=== PATIENT | female | born 1945 | race Caucasian/White ===

== ENCOUNTER 2017-06-14 05:36 | Day surgery (SDC) | payer MEDICARE ==
[~2017-06-14] VITALS: Ht 160 cm; Wt 95.7 kg
[~2017-06-14 05:36] MED LIST: ASPI-496 PO; CHOL200024 PO; FLUO40CA2 PO; GABA300C10 PO; LEVO125T5 PO; LOSA50TA6 PO; MELO7.5T31 PO; MULT-516 PO; SIMV20TA3 PO
[2017-06-14] MEDS ORDERED: LACTATED RINGERS 1,000 ML IV SCH (06:20)
[2017-06-14 06:22] VITALS: BP 137/97
[2017-06-14] MEDS ORDERED: LIDOCAINE 1%, 2ML SQ PRN (06:30)
[2017-06-14] MEDS ORDERED: BUPIVACAINE/PF 0.5% ONE (06:37)
[2017-06-14] MEDS ORDERED: EPINEPHRINE 1 MG/ML, 1ML ONE (06:37)
[2017-06-14] MEDS ORDERED: PROPOFOL 10 MG/ML, 20ML ONE ×2 (06:54→07:33)
[2017-06-14] MEDS ORDERED: CEFAZOLIN 1,000 MG ONE ×2 (06:55→07:33)
[2017-06-14] MEDS ORDERED: FENTANYL PF 100 MCG/2ML ONE ×2 (07:33→09:26)
[2017-06-14] MEDS ORDERED: DEXAMETHASONE 4 MG/ML, 1ML ONE ×2 (07:33→07:55)
[2017-06-14] MEDS ORDERED: ONDANSETRON 2MG/ML, 2ML ONE ×2 (07:33→07:55)
[2017-06-14] MEDS ORDERED: METOCLOPRAMIDE 5 MG/ML, 2ML ONE ×2 (07:33→07:55)
[2017-06-14] MEDS ORDERED: EPHEDRINE 50 MG/ML, 1ML ONE ×3 (07:33→07:54)
[2017-06-14] MEDS ORDERED: FENTANYL PF 250 MCG/5ML ONE (07:37)
[2017-06-14] MEDS ORDERED: PROMETHAZINE 25 MG/ML, 1ML IV PRN (08:30)
[2017-06-14] MEDS ORDERED: METOPROLOL 1 MG/ML, 5ML IV PRN (08:30)
[2017-06-14] MEDS ORDERED: HYDROmorphone 1 MG/ML, 1ML IV PRN (08:30)
[2017-06-14] MEDS ORDERED: ALBUTEROL SULFATE 2.5 MG/3 ML NPPB PRN (08:30)
[2017-06-14] MEDS ORDERED: ACETAMINOPHEN 325 MG TABLET PO PRN (08:30)
[2017-06-14] MEDS ORDERED: hydrALAzine 20 MG/ML, 1ML IV PRN (08:30)
[2017-06-14] MEDS ORDERED: ONDANSETRON 2MG/ML, 2ML IVPush PRN (08:30)
[2017-06-14] MEDS ORDERED: EPHEDRINE 50 MG/ML, 1ML IVPush PRN (08:30)
[2017-06-14] MEDS ORDERED: LABETALOL 5MG/ML, 20ML IV PRN (08:30)
[2017-06-14] MEDS ORDERED: OXYcodone 5 MG/5 ML ORAL.SOL UDC ONE ×2 (09:07→09:26)
[2017-06-14] MEDS ORDERED: ACETAMINOPHEN 650 MG/20.3 ML UDC ONE (09:07)
[2017-06-14] MEDS: OXYcodone 5 MG/5 ML ORAL.SOL UDC PO PRN ×2 (09:09→09:28)
[2017-06-14] MEDS: FENTANYL PF 100 MCG/2ML IV PRN ×2 (09:29→09:35)
== END 2017-06-14 14:00 ==
LOC: OUT 05:36
PROVIDERS: ATTEND Orthopaedic Surgery Adult Reconstructive Orthopaedic Surgery
DX: M25.862 Other specified joint disorders, left knee (principal); M65.862 Other synovitis and tenosynovitis, left lower leg
CPT/HCPCS: 29876; J0171; J0690; J1100; J2405; J2704; J2765; J3010; J3490; J7120